=== PATIENT | female | born 2005 | race Caucasian/White ===

== ENCOUNTER 2025-10-09 23:30 | Emergency (ER) | payer MEDICAID, SELFPAY ==
[2025-10-10 00:23] VITALS: BP 137/85; PULSE 90; RESP 18; TEMP 36.9; O2SAT 96
--- NOTE | 2025-10-10 00:30 | EKG_ITS ---
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
--- NOTE | 2025-10-10 00:30 | XR_ITS ---
Examination: Abdomen sonogram, Limited Date and time of exam: October 10, 2025, 0151 hours INDICATIONS: Sharp epigastric pain with vomiting today Technique: Real-time bonilla scale transabdominal sonographic images of the upper abdomen obtained. Findings: 9 mm gallstone Gallbladder wall 0.2 cm Common bile duct 0.3 cm Pancreatic head 2.3 cm Liver 13.4 cm smooth contour no focal liver lesions Normal hepatopetal portal venous flow Patent IVC IMPRESSION: Cholelithiasis, negative for cholecystitis
[2025-10-10 01:27] LABS: Collection Type, Urine Clean Catch
[2025-10-10 01:27] LABS: Basophils # (Auto) 0.1 Thou/mm3 (0.0-0.2); Basophils % (Auto) 0 % (0-2.5); Eosinophils # (Auto) 0.1 Thou/mm3 (0.0-0.5); Eosinophils % (Auto) 0 % (0-10); Hematocrit 42.5 % (36.0-46.0); Hemoglobin 14.9 g/dL (12.0-16.0); Immature Granulocytes Auto 0.05 Thou/mm3 (0.00-0.00); Lymphocytes # (Auto) 2.2 Thou/mm3 (1.0-4.8); Lymphocytes % (Auto) 16 % (10-50); Mean Corpuscular HGB Conc 35.1 g/dl (31.0-37.0); Mean Corpuscular Hemoglobin 29.2 pg (25.0-35.0); Mean Corpuscular Volume 83 fL (80-100); Monocytes # (Auto) 0.9 Thou/mm3 (0.0-0.8); Monocytes % (Auto) 6 % (0-12); Neutrophils # (Auto) 10.6 Thou/mm3 (1.8-7.7); Neutrophils % (Auto) 77 % (37-80); Nucleated Red Blood Cell # 0.00 Thou/mm3 (0.00-0.00); Nucleated Red Blood Cell % 0 /100 WBC (0); Platelet Count 336 Thou/mm3 (140-440); RDW Standard Deviation 37.9 fL (36.4-46.3); Red Blood Count 5.11 Miln/mm3 (4.00-5.20); White Blood Count 13.8 Thou/mm3 (3.6-11.0)
[2025-10-10 01:32] LABS: HCG Qualitative,Urine Negative
[2025-10-10 01:50] LABS: Alanine Aminotransferase 158 U/L (10-49); Albumin, Serum 4.9 gm/dL (3.5-5.0); Albumin/Globulin Ratio 1.6 (1.2-2.2); Alkaline Phosphatase 55 U/L (46-116); Anion Gap 11 (7-16); Aspartate Amino Transferase 54 U/L (0-34); BUN/Creatinine Ratio 9 Ratio (12-20); Bilirubin,Total 0.7 mg/dL (0.3-1.2); Blood Urea Nitrogen 7 mg/dL (9-23); Calcium 9.7 mg/dL (8.3-10.6); Calcium (Corrected) 9.7 mg/dL (8.5-10.1); Carbon Dioxide 27.2 mMol/L (20.0-31.0); Chloride 106 mMol/L (98-107); Creatinine (Component) 0.8 mg/dL (0.6-1.3); Globulin 3.1 gm/dL (2.3-3.5); Glucose 101 mg/dL (74-106); Lipase 39 U/L (12-53); Osmolality,Calculated 284 (275-295); Potassium 3.4 mMol/L (3.4-5.1); Sodium 144 mMol/L (136-145); Total Protein 8.0 gm/dL (5.7-8.2); Troponin I < 0.002 ng/mL (0.0-0.045); eGFR > 60 See Note
[2025-10-10 02:06] LABS: Amorphous Crystals,Urine Present (Absent); Bacteria,Urine Rare; Bilirubin,Urine Negative (Negative); Blood,Urine 1+ (Negative); Clarity,Urine Turbid (Clear/Hazy); Color,Urine Yellow (Lt Yel-Yel); Glucose, Urine Negative (Negative); Ketones,Urine Trace (Negative); Leukocyte Esterase,Urine Positive (Negative); Nitrite,Urine Negative (Negative); PH,Urine 6.5 (5.0-7.0); Protein,Urine 1+ (Neg - Trace); RBC,Urine 14 /hpf (0-3); Specific Gravity,Urine 1.036 (1.001-1.035); Squamous Epithelial Cell,Urine 25 /hpf (0-5); Urobilinogen,Urine 6.0 mg/dL (0.0-1.0); WBC,Urine 4 /hpf (0-5)
--- NOTE | 2025-10-10 02:46 | PD.EDRME ---
Rapid Medical Screening Exam RME Arrival date/time: 10/09/25 23:30 This is a case of 21-year-old female who came into the emergency room due to abdominal pain with nausea vomiting worsening symptoms this patient decided to sought consult in the emergency room Chief Complaint: Abdominal Pain Time Seen by Provider: 10/09/25 23:49 Vital signs: Vital Signs Temperature 98.5 F 10/10/25 00:23 Pulse Rate 90 10/10/25 00:23 Respiratory Rate 18 10/10/25 00:23 Blood Pressure 137/85 H 10/10/25 00:23 Pulse Oximetry (%) 96 10/10/25 00:23 Oxygen Delivery Method Room Air 10/10/25 00:23 Exam: Both upper abdomen tenderness no guarding no rebound no rigidity Clinical Impression: Abdominal pain
--- NOTE | 2025-10-10 04:21 | PRELIM_ITS ---
Gallbladder ultrasound. October 10, 2025 at 0151 hours Clinical history:Abdominal pain. Technique: Grayscale and color flow images of the abdomen are provided. Comparison: No prior study is available for comparison. Findings: The visualized liver measures 13.4 cm and is slightly increased in echogenicity without mass or ductal dilatation. The main portal vein is patent and demonstrates hepatopetal flow. No evidence of gallstone. No evidence of gallbladder wall thickening or pericholecystic fluid. The common duct is normal in caliber at 2.7 mm. No free fluid is demonstrated on the submitted images. The pancreas is unremarkable to the extent visualized. The inferior vena cava is unremarkable to the extent visualized. Impression: No evidence of Cholelithiasis , acute cholecystitis or biliary obstruction Mild fatty liver Report Electronically Signed By: Carlos Wellington 10/10/2025 4:20:56 AM [EST]
--- NOTE | 2025-10-10 05:25 | EDNOTE_ITS ---
ED Abdominal Pain RME/HPI General Chief Complaint: Abdominal Pain Stated complaint: UPPER ABDOMINAL PAIN Time seen by provider: 10/09/25 23:49 Arrival date/time: 10/09/25 23:30 RME / HPI RME / HPI narrative: 10/09/25 23:30 This is a case of 21-year-old female who came into the emergency room due to abdominal pain with nausea vomiting worsening symptoms this patient decided to sought consult in the emergency room Dr. Alejo?s Main ED Evaluation: 20yo female presents to the ED for a chief complaint of epigastric pain x 1 day. No radiation or migration. Patient reports associated nausea. Patient endorses experiencing similar symptoms in the past, but reports this pain was worse than before, so she came in for evaluation. Patient denies any V/D, fever, chills, or any other associated symptoms. NKA. Related Data Previous Rx's ?Medication ?Instructions ?Recorded acetaminophen 160 mg/5 mL oral 2 tsp PO Q4-6HRPRN #8 o z 03/14/13 liquid Allergies Allergy/AdvReac Type Severity Reaction Status Date / Time No Known Allergies Allergy Verified 09/24/23 10:30 Review of Systems Review of Systems Systems Reviewed: All systems reviewed, normal except as documented ED Exam Narrative Physical exam: Generally patient is alert in no obvious distress, heart regular rate and rhythm, lungs clear to auscultation equal bilaterally, musculoskeletal exam showed no costovertebral angle tenderness, abdomen soft bowel sounds present nondistended no right upper quadrant abdominal tenderness. Minimal epigastric abdominal tenderness. Course Quality Measures none Orders Category Date Time Status EKG (ED ONLY) *Do not use* NOW Care 10/10/25 00:30 Completed EKG (ED Only) Stat Exams 10/10/25 00:30 Draft US gall bladder Stat Exams 10/10/25 00:30 Taken CBC Stat Lab 10/10/25 01:06 Completed Comprehensive Metabolic Panel Stat Lab 10/10/25 01:06 Completed HCG Qualitative,Urine Stat Lab 10/10/25 01:15 Completed Lipase Stat Lab 10/10/25 01:06 Completed Troponin I Stat Lab 10/10/25 01:06 Completed Urinalysis Stat Lab 10/10/25 01:15 Completed Vital Signs Vital signs: Vital Signs Temperature 98.5 F 10/10/25 00:23 Pulse Rate 90 12/22/25 00:23 Respiratory Rate 18 10/10/25 00:23 Blood Pressure 137/85 H 10/10/25 00:23 Pulse Oximetry (%) 96 10/10/25 00:23 Oxygen Delivery Method Room Air 10/10/25 00:23 Abdominal Pain MDM MDM Narrative MDM Narrative:: Scribe Attestation: 10/10/25 - Kadeem, Judith Sun, joshua scribing for and in the presence of Dr. Alejo. I interpreted all labs. There is no leukocytosis. LFTs are normal. Gallbladder ultrasound showed no evidence of acute disease process. Urinalysis shows no evidence of infection. is negative. Patient most likely has a gastritis. She is to use [id number] Maalox or Mylanta as needed. Avoid hot spicy greasy fatty foods. Follow-up with her doctor. Return to ER as needed or if condition worsens. Patient data External records reviewed:: [facility] previous records (Per chart review, patient has no relevant previous ED visits.) Clinical information provided by:: patient Social determinants that could affect healthcare access:: none Patient has the following chronic illnesses:: none How is presenting disease/condition affected by chronic disease/condition?: no chronic disease Evaluation data The following diagnostics were reviewed and interpreted by me:: lab results, radiology exam(s) and EKG tracing(s) Lab and/or radiology exams considered but not ordered:: none Interpretation Summary: Telerad Preliminary Report Draft Patient: KAMILAH SEGURA Record#: [id number] Birthdate: 2005 Age/Sex: 20 / F Location: [facility] Attending Dr: Ordering Physician: Date of Service: Procedure(s): Accession Number(s): cc: ~ Gallbladder ultrasound. October 10, 2025 at 0151 hours Clinical history:Abdominal pain. Technique: Grayscale and color flow images of the abdomen are provided. Comparison: No prior study is available for comparison. Findings: The visualized liver measures 13.4 cm and is slightly increased in echogenicity without mass or ductal dilatation. The main portal vein is patent and demonstrates hepatopetal flow. No evidence of gallstone. No evidence of gallbladder wall thickening or pericholecystic fluid. The common duct is normal in caliber at 2.7 mm. No free fluid is demonstrated on the submitted images. The pancreas is unremarkable to the extent visualized. The inferior vena cava is unremarkable to the extent visualized. Impression: No evidence of Cholelithiasis , acute cholecystitis or biliary obstruction Mild fatty liver Report Electronically Signed By: Carlos Wellington 10/10/2025 4:20:56 AM [EST Medications / Prescriptions Medications or Prescriptions considered but not ordered:: none Medication administrations:: none Consultations Consultation(s) initiated? (list below): No Diagnosis Differential diagnosis abdominal pain: other (See MDM) Most likely diagnosis given after review of the tests above:: see clinical impression below Admission Indicated Admission indicated?: not indicated Admission Request Was there a request for admission?: No Disposition Plan Disposition Plan: Discharge Discharge Attestation Discharge Attestation: The patient and all family members were given an opportunity to ask questions and understood the discharge instructions. Discharge instructions specifically effects, indications for sooner follow up or return to the emergency department, and the expected course of current diagnosis. Patient condition: Stable Discharge Plan Plan Patient Disposition: HOME (Self Care) Prescriptions/Referrals Prescriptions/Med Rec: No Action acetaminophen 160 MG/5 ML solution 2 tsp PO Q4-6HRPRN Qty: 8 0RF Referrals: Rod Bgigs PA-C [Primary Care Provider] - In 1 week Problem List Clinical Impression: Gastritis Patient/Caregiver Discharge Instructions Education Materials: ED Gastritis (Adult) Additional Instructions: Avoid hot spicy greasy fatty foods. Use [id number] Maalox or Mylanta as needed for pain. Follow-up with your doctor as needed. Print Language: Irish Stand Alone Forms: [employer] Award Info., Patient Portal Info Letter
== END 2025-10-10 06:00 | disposition home or self-care (01) ==
PROVIDERS: Nurse Practitioner Family; Emergency Provider Emergency Medicine; PCP Physician Assistant Medical
DX: K29.70 Gastritis, unspecified, without bleeding (principal)
CPT/HCPCS: 36415; 76705; 80053; 81001; 81025; 83690; 84484; 85025; 93005; 99283